=== PATIENT | female | born 1940 | race Caucasian/White ===

== ENCOUNTER 2017-04-25 10:44 | Day surgery (SDC) | payer MEDICARE ==
[2017-04-20 15:24] LABS: CLARITY,URINE Clear (Clear); COLOR,URINE Yellow (Yellow); GLUCOSE, URINE Negative (Neg); KETONES,URINE Negative (Neg); LEUKOCYTE ESTERASE ,URINE Negative (Neg); NITRITES, URINE Negative (Neg); OCCULT BLOOD,URINE Negative (Neg); PROTEIN,URINE Negative (Neg); UROBILINOGEN,URINE 0.2 E.U/dL (0.2-1.0)
[2017-04-20 15:25] LABS: UA COLLECTION TYPE NON-SPECIFIED
[~2017-04-25] VITALS: Ht 165.1 cm; Wt 87.1 kg
[2017-04-25] VITALS (15 sets, daily range): BP systolic 113–144; BP diastolic 64–108
[~2017-04-25 10:44] MED LIST: AMLO5TAB21 PO; ASCO500C15 PO; CHOL10002 PO; FLUT1AER INH; HYDR25TA4 PO; LORA1TAB PO; MAGN250T29 PO; RES15C PO; TRAM50TA2 PO; TURMERIC CURCUMIN PO; famotidine 20mg tablet PO ONE
[2017-04-25] MEDS ORDERED: FEXO180T94 PO (11:58)
[2017-04-25] MEDS ORDERED: BUPIVAcaine/PF 2.5 mg/ml (0.25%) 30ml vial ONE (13:46)
[2017-04-25] MEDS ORDERED: bacitracin 15gm ointment TP ONE (13:46)
[2017-04-25] MEDS ORDERED: ePHEDrine 50MG/ML INJ. ONE (14:00)
[2017-04-25] MEDS ORDERED: sevoflurane 250ml liquid IH ONE (14:00)
[2017-04-25] MEDS ORDERED: midazolam 2 mg/2 ml injection ONE (14:03)
[2017-04-25] MEDS ORDERED: fentaNYL/PF 50MCG/1 ML 2ML syringe ONE ×2 (14:03→14:23)
[2017-04-25] MEDS ORDERED: LIDOcaine 2% (20mg/ml) 5ml vial ONE (14:18)
[2017-04-25] MEDS ORDERED: propofol inj 20 ML IV ONE (14:18)
[2017-04-25] MEDS ORDERED: ondansetron/PF 4mg/2ml inj ONE (14:37)
[2017-04-25] MEDS ORDERED: morphine 2 MG/ML inj. syringe IV STA (14:53)
[2017-04-25] MEDS ORDERED: morphine 5 MG/ML injection ONE (14:55)
[2017-04-25] MEDS ORDERED: HYDROmorphone 1 mg/ml syringe IV ONE (15:15)
[2017-04-25] MEDS ORDERED: HYDROmorphone 1 mg/ml syringe ONE (15:16)
[2017-04-25] MEDS ORDERED: HYDROmorphone 1 mg/ml syringe IV PRN ×2 (15:40)
[2017-04-25] MEDS ORDERED: ondansetron/PF 4mg/2ml inj IV PRN (15:40)
[2017-04-25] MEDS ORDERED: morphine 2 MG/ML inj. syringe IV PRN (15:40)
[2017-04-25] MEDS ORDERED: ringers solution, lacted 1,000 ML IV SCH (15:40)
[2017-04-25] MEDS ORDERED: ketorolac trometh. 30mg/ml inj. IV ONE (15:45)
[2017-04-26] MEDS ORDERED: cefazolin/dext.iso 2gm/50ml 50 ML IV ONE (05:30)
== END 2017-04-25 17:33 | disposition home or self-care (01) ==
LOC: PAS 10:44
PROVIDERS: ATTEND Surgery
DX: K42.9 Umbilical hernia without obstruction or gangrene (principal); F41.9 Anxiety disorder, unspecified; M19.90 Unspecified osteoarthritis, unspecified site; I10 Essential (primary) hypertension; I49.1 Atrial premature depolarization; J44.9 Chronic obstructive pulmonary disease, unspecified; G89.29 Other chronic pain; Z88.6 Allergy status to analgesic agent; Z88.2 Allergy status to sulfonamides; Z88.0 Allergy status to penicillin; Z88.5 Allergy status to narcotic agent; Z87.891 Personal history of nicotine dependence; Z85.3 Personal history of malignant neoplasm of breast; Z90.49 Acquired absence of other specified parts of digestive tract; Z96.643 Presence of artificial hip joint, bilateral; Z98.890 Other specified postprocedural states; Z88.1 Allergy status to other antibiotic agents; Z90.710 Acquired absence of both cervix and uterus
CPT/HCPCS: 49585; 81003; 93005; J1170; J1885; J2001; J2250; J2405; J2704; J3010; J3490; J7120; 88302; A7000; J0690

== ENCOUNTER 2018-11-12 12:10 | Emergency (ER) | payer MEDICARE ==
[~2018-11-12] VITALS: Ht 165.1 cm; Wt 92.7 kg
[~2018-11-12 12:10] MED LIST changes: +FEXO180T94 PO; -famotidine 20mg tablet PO ONE
[2018-11-12 13:07] LABS: BASOPHILS % (AUTO) 0.2 % (0-1); EOSINOPHILS # (AUTO) 0.1 X10'3 (0-0.9); EOSINOPHILS % (AUTO) 0.5 % (0-6); HEMATOCRIT 48.6 % (35.0-45.0); HEMOGLOBIN 16.2 g/dl (12.0-16.0); LYMPHOCYTES # (AUTO) 0.2 X10'3 (1.1-4.8); LYMPHOCYTES % (AUTO) 1.4 % (21-51); MEAN CORPUSCULAR HEMOGLOBIN 28.9 PG (27.0-31.0); MEAN CORPUSCULAR HGB CONC 33.3 g/dL (33.0-36.5); MEAN CORPUSCULAR VOLUME 86.8 FL (78-98); MEAN PLATELET VOLUME 8.5 FL (7.4-10.4); MONOCYTES # (AUTO) 0.4 X10'3 (0-0.9); MONOCYTES % (AUTO) 2.4 % (2-12); NEUTROPHILS # (AUTO) 16.4 X10'3 (1.8-7.7); NEUTROPHILS % (AUTO) 95.5 % (42-75); PLATELET COUNT 399 X10'3 (140-440); RED BLOOD COUNT 5.59 X10'6 (4.20-5.60); WHITE BLOOD COUNT 17.1 X10'3 (4.5-11.0)
[2018-11-12 13:21] LABS: PARTIAL THROMBOPLASTIN TIME 26 SECONDS (22-32)
[2018-11-12 13:33] LABS: ALANINE AMINOTRANSFERASE 24 U/L (12-78); ALBUMIN 3.8 G/DL (3.4-5.0); ALBUMIN/GLOBULIN RATIO 1.1 (1.1-1.5); ALKALINE PHOSPHATASE 60 IU/L (46-116); ANION GAP 6 (8-16); ASPARTATE AMINO TRANSFERASE 18 U/L (10-37); BILIRUBIN,TOTAL 0.6 MG/DL (0.1-1.0); BLOOD UREA NITROGEN 18 MG/DL (7-18); BUN/CREATININE RATIO 19.8 (6.6-38.0); CALCIUM 8.8 MG/DL (8.5-10.1); CHLORIDE 104 MMOL/L (99-107); CREATININE 0.91 MG/DL (0.40-0.90); GLUCOSE 156 MG/DL (70-104); POTASSIUM 3.5 MMOL/L (3.5-5.1); SODIUM 144 MMOL/L (135-145); TOTAL PROTEIN 7.3 G/DL (6.4-8.2); eGFR 60 ML/MIN
[2018-11-12 13:34] LABS: CLARITY,URINE CLOUDY (Clear); COLOR,URINE YELLOW (Yellow); GLUCOSE, URINE NEGATIVE (Neg); KETONES,URINE TRACE mg/dl (Neg); LEUKOCYTE ESTERASE ,URINE SMALL (Neg); NITRITES, URINE NEGATIVE (Neg); OCCULT BLOOD,URINE NEGATIVE (Neg); PH,URINE 5.5 (4.8-8.0); PROTEIN,URINE 30 mg/dl (Neg); UA COLLECTION TYPE CLN CATCH MIDSTREAM; UROBILINOGEN,URINE 0.2 E.U/dL (0.2-1.0)
[2018-11-12] MEDS ORDERED: normal saline 1000ML IV soln IVB ONE (13:50)
[2018-11-12 13:51] LABS: MUCUS STRANDS MANY /LPF (Neg); SQUAMOUS EPITHELIAL CELL,UR MANY /LPF (FEW)
[2018-11-12 13:52] LABS: BACTERIA,URINE 2+ /HPF (Neg); RBC,URINE 0-2 /HPF (0-2)
[2018-11-12] MEDS ORDERED: ONDA4TAB12 PO (14:22)
[2018-11-12 15:00] VITALS: BP 130/70
== END 2018-11-12 15:33 | disposition home or self-care (01) ==
LOC: ER 12:10
DX: R11.2 Nausea with vomiting, unspecified (principal); R19.7 Diarrhea, unspecified; I10 Essential (primary) hypertension; J44.9 Chronic obstructive pulmonary disease, unspecified; F41.9 Anxiety disorder, unspecified; Z98.890 Other specified postprocedural states; Z85.3 Personal history of malignant neoplasm of breast; Z88.1 Allergy status to other antibiotic agents; Z88.2 Allergy status to sulfonamides; Z79.899 Other long term (current) drug therapy
CPT/HCPCS: 36415; 80053; 81001; 83605; 84145; 85025; 85610; 85730; 87040; 99284; J7030

== ENCOUNTER 2019-01-15 10:42 | Inpatient (IN) | payer MEDICARE ==
[2019-01-13 14:44] LABS: BASOPHILS # (AUTO) 0.1 X10'3 (0-0.2); BASOPHILS % (AUTO) 1.1 % (0-1); EOSINOPHILS # (AUTO) 0.3 X10'3 (0-0.9); EOSINOPHILS % (AUTO) 3.6 % (0-6); LYMPHOCYTES # (AUTO) 2.1 X10'3 (1.1-4.8); MEAN CORPUSCULAR HEMOGLOBIN 29.4 PG (27.0-31.0); MEAN CORPUSCULAR VOLUME 86.6 FL (78-98); MEAN PLATELET VOLUME 8.1 FL (7.4-10.4); MONOCYTES # (AUTO) 0.7 X10'3 (0-0.9); MONOCYTES % (AUTO) 7.9 % (2-12); NEUTROPHILS # (AUTO) 5.3 X10'3 (1.8-7.7); NEUTROPHILS % (AUTO) 62.4 % (42-75); PRE OP HEMOGLOBIN 14.9 g/dL (12.0-16.0); PRE OP PLATELET COUNT 413 X10'3 (140-440); RED BLOOD COUNT 5.08 X10'6 (4.20-5.60); RED CELL DISTRIBUTION WIDTH 15.3 % (11.5-14.5)
[2019-01-13 14:52] LABS: ALBUMIN/GLOBULIN RATIO 1.1 (1.1-1.5); ALKALINE PHOSPHATASE 51 IU/L (46-116); BLOOD UREA NITROGEN 10 MG/DL (7-18); BUN/CREATININE RATIO 12.2 (6.6-38.0); CALCIUM 9.2 MG/DL (8.5-10.1); CHLORIDE 102 MMOL/L (99-107); CREATININE 0.82 MG/DL (0.40-0.90); PRE OP ALT 21 U/L (30-65); PRE OP ANION GAP 2 (8-16); PRE OP AST 16 U/L (10-37); PRE OP BILIRUB, TOTAL 0.5 MG/DL (0.0-1.0); PRE OP GLUCOSE 100 MG/DL (70-104); PRE OP POTASSIUM 3.6 MMOL/L (3.4-5.1); PRE OP SODIUM 140 MMOL/L (135-145); TOTAL CARBON DIOXIDE 35.9 MMOL/L (24-32); TOTAL PROTEIN 7.5 G/DL (6.4-8.2); eGFR 67 ML/MIN
[2019-01-13 15:46] LABS: CLARITY,URINE SLIGHTLY CLOUDY (Clear); COLOR,URINE YELLOW (Yellow); GLUCOSE, URINE NEGATIVE (Neg); KETONES,URINE NEGATIVE (Neg); LEUKOCYTE ESTERASE ,URINE NEGATIVE (Neg); NITRITES, URINE NEGATIVE (Neg); OCCULT BLOOD,URINE NEGATIVE (Neg); PROTEIN,URINE NEGATIVE (Neg); UROBILINOGEN,URINE 0.2 E.U/dL (0.2-1.0)
[2019-01-13 15:50] LABS: UA COLLECTION TYPE CLN CATCH MIDSTREAM
[2019-01-13 16:10] LABS: HYALINE CASTS 0-3 /LPF (NEGATIVE); MUCUS STRANDS MODERATE /LPF (Neg); SQUAMOUS EPITHELIAL CELL,UR MANY /LPF (FEW)
[2019-01-13 16:11] LABS: TRANSITIONAL EPI CELLS,URINE FEW /HPF
[2019-01-13 16:12] LABS: BACTERIA,URINE FEW /HPF (Neg); RBC,URINE 0-2 /HPF (0-2); WBC,URINE 0-4 /HPF (0-4)
[~2019-01-15] VITALS: Ht 165.1 cm; Wt 94.1 kg
[2019-01-15] VITALS (26 sets, daily range): BP systolic 103–152; BP diastolic 62–87
[~2019-01-15 10:42] MED LIST changes: -FEXO180T94 PO; -TRAM50TA2 PO; +VITA0.4T7 PO; +albuterol 2.5 MG/3 ML nebule NEB ONE; +clindamycin-Cleocin 900mg/D5W 50 ML IV ONE; +famotidine 20mg tablet PO ONE
--- NOTE | 2019-01-15 11:02 | NUR ---
PT HAS 11/-2' SOFT LUMP L ANTERIOR SHOULDER, STATES HES HAD FOR A LONG TIME. DR DUDLEY IN TO EXAM PT
[2019-01-15] MEDS: ringers solution, lacted 1,000 ML IV SCH ×2 (11:16→17:30)
[2019-01-15] MEDS ORDERED: LORA10TA7 PO (11:30)
[2019-01-15] MEDS ORDERED: BUPIVAcaine/PF 2.5mg/ml (0.25%) 10ml vial ONE ×2 (11:43→13:35)
--- NOTE | 2019-01-15 11:48 | NUR ---
patient refused svn tx due tosaya it causes diahrea Addendum: 01/15/19 at 1150 by Mary Jo Cornell RT Amended: Links added.
[2019-01-15] MEDS ORDERED: dexamethasone sod phosphate 10mg/ml inj ONE (12:22)
[2019-01-15] MEDS ORDERED: glycopyrrolate 0.2mg/ml inj ONE (12:22)
[2019-01-15] MEDS ORDERED: sevoflurane 250ml liquid IH ONE (12:22)
[2019-01-15] MEDS ORDERED: neostigmine methylsulfate 1 MG/ML 10ml vial ONE (12:22)
[2019-01-15] MEDS ORDERED: MIDAZolam 5mg/5ml vial ONE (12:29)
[2019-01-15] MEDS ORDERED: fentaNYL/PF 50MCG/1 ML 2ML syringe ONE (12:29)
[2019-01-15] MEDS ORDERED: rocuronium 10mg/ml inj IV ONE (12:37)
[2019-01-15] MEDS ORDERED: etomidate 2mg/ml inj. ONE (12:37)
[2019-01-15] MEDS ORDERED: ondansetron/PF 4mg/2ml inj ONE (12:37)
[2019-01-15] MEDS ORDERED: ringers solution, lacted 1,000 ML IV SCH (12:57)
[2019-01-15] MEDS: ceFAZolin 1000mg inj ONE ×2 (12:58→12:59)
[2019-01-15] MEDS ORDERED: morphine 4 MG/ML inj SYRINge IV PRN ×2 (13:00)
[2019-01-15] MEDS ORDERED: hydrALAZINE 20mg/ml inj. IV PRN (13:00)
[2019-01-15] MEDS ORDERED: fentaNYL/PF 50MCG/1 ML 2ML syringe IV PRN ×2 (13:00)
[2019-01-15] MEDS ORDERED: labetalol 20mg/4ml (5mg/ml) syringe IV PRN (13:00)
[2019-01-15] MEDS ORDERED: ondansetron/PF 4mg/2ml inj IV PRN (13:00)
[2019-01-15] MEDS ORDERED: ePHEDrine 50MG/ML INJ. ONE (13:06)
[2019-01-15] MEDS ORDERED: bacitracin 15gm ointment TP ONE (13:33)
[2019-01-15] MEDS ORDERED: BUPIVACAINE liposomal/PF 13.3 MG/ML vial IM ONE (13:35)
[2019-01-15] MEDS ORDERED: acetaminophen 325mg tablet PO PRN (13:55)
[2019-01-15] MEDS ORDERED: ketorolac tromethamine 15mg/ml inj. IV ONE (14:50)
[2019-01-15] MEDS ORDERED: acetaminophen 1,000mg/100ml IV 100 ML IV ONE (14:50)
[2019-01-15] MEDS ORDERED: VITA1CAP PO (15:05)
--- NOTE | 2019-01-15 15:20 | NUR ---
Received from OR via TRINY, accompanied by Anesthesiologist DR FREDERICK and report given by Anesthesiologist. PT AGITATED, PAINFUL, VERSED AND FENTANYL GIVEN BY DR FREDERICK, ABDOMEN W/DRSG CDI, DE JESUS TO GRAVITY DRAINAGE W/DARK YELLOW URINE IN DRAINAGE BAG. Addendum: 01/15/19 at 1730 by Marla Kerns RN Amended: Links added.
[2019-01-15] MEDS: morphine/NS 5 mg/ml CADD 50 ML IV SCH ×5 (16:40→23:00)
--- NOTE | 2019-01-15 16:40 | NUR ---
Report called to receiving nurse. Transferred via GURNEY, 1 BAG OF Belongings SENT W/PT ROOM 345, RECEIVING RN AT BEDSIDE TO RECIEVE PT, PT TRANSFERRED OVER ONTO BED, BLL, CALL LIGHT GIVEN, SIDE RAILS UP X 2. Special Issues communicated to receiving nurse. YES. Addendum: 01/15/19 at 1732 by Marla Kerns RN Amended: Links added.
--- NOTE | 2019-01-15 17:00 | NUR ---
patient appears stable on admit to unit. patient is on continuous pulse ox o2 sats 90%/5L MD aware. Surgical wound to abdomen CDI. patient orientated to unit. Report given to Nicky PAULSON
--- NOTE | 2019-01-15 17:21 | NUR ---
Patient in room . I have received report from milla PAULSON and had the opportunity to ask questions and assume patient care.
[2019-01-15] MEDS: temazepam 15mg capsule PO SCH (21:00)
[2019-01-15] MEDS: albuterol 2.5 MG/3 ML nebule NEB SCH (21:31)
[2019-01-16] MEDS: morphine/NS 5 mg/ml CADD 50 ML IV SCH ×6 (01:00→11:00)
[2019-01-16] MEDS: albuterol 2.5 MG/3 ML nebule NEB SCH ×4 (03:00→20:16)
[2019-01-16 04:00] VITALS: BP 114/69
--- NOTE | 2019-01-16 06:57 | NUR ---
Patient in room [facility]. I have received report from PAT RN and had the opportunity to ask questions and assume patient care.
[2019-01-16 07:00] VITALS: BP 111/55
[2019-01-16] MEDS: ascorbic acid 500mg tablet PO SCH (08:04)
[2019-01-16] MEDS: vitamin D (cholecalciferol) 1,000 unit tablet PO SCH (08:04)
[2019-01-16] MEDS: magnesium oxide 400mg tablet PO SCH (08:04)
[2019-01-16] MEDS: amLODIPine 5mg tablet PO SCH (08:05)
[2019-01-16] MEDS: HYDROchlorothiazide 25mg tablet PO SCH (08:05)
[2019-01-16] MEDS: vitamin B comp w/Vit. C tab 1 TAB TABLET PO SCH (08:28)
[2019-01-16] MEDS: budesonide 0.5mg/2ml UD nebule IH SCH ×2 (09:37→20:16)
[2019-01-16 12:00] VITALS: BP 115/55
[2019-01-16] MEDS ORDERED: CADD PCA waste documentation MC SCH (15:00)
[2019-01-16] MEDS: traMADol 50MG tablet PO PRN (15:09)
--- NOTE | 2019-01-16 17:41 | NUR ---
Student documentation: I have reviewed all interventions, assessments performed and documented by Farzad EASLEY
--- NOTE | 2019-01-16 17:42 | NUR ---
Student Medication Administration: , all medication were reviewed, dispensed, administered and documented per hospital policy by Farzad HOUSTON
[2019-01-16 18:00] VITALS: BP 124/64
--- NOTE | 2019-01-16 18:40 | NUR ---
received report from LORENE Natarajan
--- NOTE | 2019-01-16 18:45 | NUR ---
Problems reprioritized. Patient report given, questions answered & plan of care reviewed with Papito PAULSON .
[2019-01-16] MEDS: LORazepam 0.5 MG tablet PO PRN (20:13)
[2019-01-16] MEDS: temazepam 15mg capsule PO SCH (20:14)
[2019-01-17] VITALS: BP 133/70
[2019-01-17] MEDS: traMADol 50MG tablet PO PRN ×3 (01:58→16:46)
[2019-01-17] MEDS: albuterol 2.5 MG/3 ML nebule NEB SCH ×4 (02:00→20:15)
--- NOTE | 2019-01-17 06:50 | NUR ---
Problems reprioritized. Patient report given, questions answered & plan of care reviewed with LORENE Pompa.
[2019-01-17] MEDS: budesonide 0.5mg/2ml UD nebule IH SCH ×2 (06:58→20:15)
[2019-01-17 08:02] VITALS: BP 141/72
[2019-01-17] MEDS: ascorbic acid 500mg tablet PO SCH (08:49)
[2019-01-17] MEDS: amLODIPine 5mg tablet PO SCH (08:51)
[2019-01-17] MEDS: magnesium oxide 400mg tablet PO SCH (08:51)
[2019-01-17] MEDS: vitamin B comp w/Vit. C tab 1 TAB TABLET PO SCH (08:51)
[2019-01-17] MEDS: HYDROchlorothiazide 25mg tablet PO SCH (08:51)
[2019-01-17] MEDS: famotidine 20mg tablet PO SCH (08:51)
[2019-01-17] MEDS: vitamin D (cholecalciferol) 1,000 unit tablet PO SCH (08:52)
--- NOTE | 2019-01-17 10:00 | NUR ---
Dr. Zambrano in to see patient. Informed MD that abdomen is distended, pt not passing gas, pt on 4L NC at 90% and desats to 86-88% with walking. MD ordered IS, for pt to walk, full liquid diet, and RT treatments. Will continue to monitor.
[2019-01-17] MEDS ORDERED: albuterol 2.5 MG/3 ML nebule NEB PRN (10:45)
[2019-01-17 11:00] VITALS: BP 133/76
[2019-01-17] MEDS ORDERED: nitrofurantoin macrocrystal 100mg capsule PO ONE (12:30)
[2019-01-17] MEDS: magnesium hydroxide 30ml (MOM) UD suspension PO PRN (13:36)
[2019-01-17] MEDS: LORazepam 0.5 MG tablet PO PRN (13:36)
[2019-01-17 18:00] VITALS: BP_SYST 131; BP_SYST 181; BP_DIAS 70
--- NOTE | 2019-01-17 18:22 | NUR ---
Problems reprioritized. Patient report given, questions answered & plan of care reviewed with Papito PAULSON.
[2019-01-17] MEDS: temazepam 15mg capsule PO SCH (21:06)
[2019-01-18] VITALS: BP 126/69
[2019-01-18] MEDS: albuterol 2.5 MG/3 ML nebule NEB SCH ×4 (02:45→20:55)
--- NOTE | 2019-01-18 06:14 | NUR ---
Patient in room [facility]. I have received report from LORENE Cobos and had the opportunity to ask questions and assume patient care. Patient currently sleeping in bed, bed locked and low, call light in reach, no acute distress, will continue to monitor.
--- NOTE | 2019-01-18 06:43 | NUR ---
report given to LORENE Crawford
[2019-01-18 07:04] VITALS: BP 121/70
[2019-01-18] MEDS: magnesium oxide 400mg tablet PO SCH (07:22)
[2019-01-18] MEDS: vitamin B comp w/Vit. C tab 1 TAB TABLET PO SCH (07:22)
[2019-01-18] MEDS: ascorbic acid 500mg tablet PO SCH (07:22)
[2019-01-18] MEDS: HYDROchlorothiazide 25mg tablet PO SCH (07:22)
[2019-01-18] MEDS: magnesium hydroxide 30ml (MOM) UD suspension PO PRN (07:22)
[2019-01-18] MEDS: famotidine 20mg tablet PO SCH (07:22)
[2019-01-18] MEDS: vitamin D (cholecalciferol) 1,000 unit tablet PO SCH (07:22)
[2019-01-18] MEDS: amLODIPine 5mg tablet PO SCH (07:22)
[2019-01-18] MEDS: traMADol 50MG tablet PO PRN ×3 (07:23→21:15)
[2019-01-18] MEDS: budesonide 0.5mg/2ml UD nebule IH SCH ×2 (07:25→20:55)
--- NOTE | 2019-01-18 09:33 | NUR ---
spoke with Dr. Zambrano on the phone regarding patient's rash/blisters on abd. benadryl 25mg PO ordered PRN, also discussed that pt's power is out at home due to PGE shut off so he stated she does not need to be discharged today as she has an oxygen concentrator at home that she needs and cannot use without power.
[2019-01-18] MEDS: diphenhydrAMINE 25mg capsule PO PRN ×2 (09:37→21:16)
[2019-01-18 11:37] VITALS: BP 120/65
[2019-01-18 18:00] VITALS: BP 120/59
--- NOTE | 2019-01-18 18:19 | NUR ---
Patient in room [facility]. I have received report from LORENE Crawford and had the opportunity to ask questions and assume patient care.
--- NOTE | 2019-01-18 18:30 | NUR ---
Problems reprioritized. Patient report given, questions answered & plan of care reviewed with LORENE Daniel.
[2019-01-18 19:00] VITALS: BP 120/59
[2019-01-18] MEDS: temazepam 15mg capsule PO SCH (21:14)
[2019-01-19 00:08] VITALS: BP 119/67
[2019-01-19] MEDS: albuterol 2.5 MG/3 ML nebule NEB SCH ×4 (03:51→20:12)
--- NOTE | 2019-01-19 05:46 | NUR ---
Patient has had a BM for my shift. Diet advanced as ordered.
--- NOTE | 2019-01-19 06:24 | NUR ---
Problems reprioritized. Patient report given, questions answered & plan of care reviewed with LORENE Evangelista.
--- NOTE | 2019-01-19 06:41 | NUR ---
Patient in room [facility]. I have received report from Elida PAULSON and María RN and had the opportunity to ask questions and assume patient care.
[2019-01-19 07:00] VITALS: BP 123/74
[2019-01-19] MEDS: vitamin B comp w/Vit. C tab 1 TAB TABLET PO SCH (07:41)
[2019-01-19] MEDS: vitamin D (cholecalciferol) 1,000 unit tablet PO SCH (07:41)
[2019-01-19] MEDS: HYDROchlorothiazide 25mg tablet PO SCH (07:41)
[2019-01-19] MEDS: magnesium oxide 400mg tablet PO SCH (07:41)
[2019-01-19] MEDS: famotidine 20mg tablet PO SCH (07:41)
[2019-01-19] MEDS: amLODIPine 5mg tablet PO SCH (07:41)
[2019-01-19] MEDS: ascorbic acid 500mg tablet PO SCH (07:41)
[2019-01-19] MEDS: traMADol 50MG tablet PO PRN (07:47)
[2019-01-19] MEDS: budesonide 0.5mg/2ml UD nebule IH SCH ×2 (08:00→20:12)
[2019-01-19 12:00] VITALS: BP 128/68
[2019-01-19] MEDS: LORazepam 0.5 MG tablet PO PRN ×2 (13:42→19:26)
--- NOTE | 2019-01-19 13:55 | NUR ---
Patient became anxious suddenly. When I asked what's bothering her, patient states "My niece kept on telling me that I might have a MRSA on my belly." I asked her if she wants us to not allow her niece to talk to her on the hospital phone, she says "she always think she knows everything and she scares me! Patient verified to me that she is not refusing communication with her niece. Ativan PO given as indicated for anxiety. Charge nurse Alison notified about this. Patient's abdomen has blisters that are intact and some redness which patient stated that Dr. Zambrano saw it and thought that it could be from a tape.
[2019-01-19] MEDS: mag hydrox/Alum hydrox/simeth 30ml oral suspension PO PRN (17:15)
[2019-01-19 18:00] VITALS: BP 135/68
--- NOTE | 2019-01-19 18:02 | NUR ---
Patient in room [facility]. I have received report from LORENE Evangelista and had the opportunity to ask questions and assume patient care.
--- NOTE | 2019-01-19 18:34 | NUR ---
Problems reprioritized. Patient report given, questions answered & plan of care reviewed with Elida RN and Allison RN.
[2019-01-19] MEDS: ondansetron/PF 4mg/2ml inj IV PRN (19:15)
[2019-01-19] MEDS: temazepam 15mg capsule PO SCH (21:06)
[2019-01-20] VITALS: BP 118/54
[2019-01-20] MEDS: albuterol 2.5 MG/3 ML nebule NEB SCH ×4 (02:58→20:01)
--- NOTE | 2019-01-20 06:31 | NUR ---
Problems reprioritized. Patient report given, questions answered & plan of care reviewed with LORENE Harvey.
--- NOTE | 2019-01-20 06:39 | NUR ---
Patient in room [facility]. I have received report from Candice and had the opportunity to ask questions and assume patient care.
[2019-01-20] MEDS: famotidine 20mg tablet PO SCH (07:25)
[2019-01-20] MEDS: HYDROchlorothiazide 25mg tablet PO SCH (07:26)
[2019-01-20] MEDS: amLODIPine 5mg tablet PO SCH (07:26)
[2019-01-20] MEDS: vitamin B comp w/Vit. C tab 1 TAB TABLET PO SCH (07:26)
[2019-01-20] MEDS: magnesium oxide 400mg tablet PO SCH (07:26)
[2019-01-20] MEDS: vitamin D (cholecalciferol) 1,000 unit tablet PO SCH (07:26)
[2019-01-20] MEDS: ascorbic acid 500mg tablet PO SCH (07:26)
[2019-01-20 07:41] VITALS: BP 123/78
[2019-01-20 07:45] VITALS: BP 116/57
[2019-01-20] MEDS: budesonide 0.5mg/2ml UD nebule IH SCH ×2 (08:00→20:01)
[2019-01-20] MEDS: ondansetron/PF 4mg/2ml inj IV PRN ×2 (08:58→23:21)
[2019-01-20] MEDS: LORazepam 0.5 MG tablet PO PRN (08:58)
--- NOTE | 2019-01-20 10:18 | NUR ---
PT REFUSING NEW IV, CURRENT IV OUTDATED 01/15. EDUCATED PT ON RISKS OF INFECTION.
--- NOTE | 2019-01-20 10:32 | NUR ---
Student Medication Administration: For this medication-pass time frame, all medication were reviewed, dispensed, administered and documented per hospital policy by Devon nursing staffing coordinator.
[2019-01-20 11:11] VITALS: BP 114/51
--- NOTE | 2019-01-20 11:37 | NUR ---
Student documentation: I have reviewed and agree with all interventions, assessments performed and documented by Devon, nursing informatics clinical analyst.
--- NOTE | 2019-01-20 11:58 | NUR ---
Problems reprioritized. Patient report given, questions answered & plan of care reviewed with Candice.
--- NOTE | 2019-01-20 16:35 | NUR ---
Initial: Pt admit w/ recurrent abdominal wall hernias s/p repair. Advanced to regular diet PO 100% lunch today w/ 50% avg previous meals though PO has fluctuated some post-op. LBM 01/19 w/ abdominal pain and nausea noted per EMR today. Receiving vitamins for wound healing needs. Will continue to monitor for additional protein needs pending regular diet PO post-op. Rec: 1. continue regular diet 2. monitor for ONS needs post-op 3. MVI for wound healing 4. bowel care as needed 5. wt per rx Addendum: 01/20/19 at [address] Amended: Links added.
--- NOTE | 2019-01-20 18:27 | NUR ---
Problems reprioritized. Patient report given, questions answered & plan of care reviewed with KELSEA PAULSON.
--- NOTE | 2019-01-20 18:30 | NUR ---
Patient in room [facility]. I have received report from Candice PAULSON and had the opportunity to ask questions and assume patient care.
[2019-01-20] MEDS: traMADol 50MG tablet PO PRN (18:42)
[2019-01-20 19:00] VITALS: BP 113/64
[2019-01-20] MEDS: mag hydrox/Alum hydrox/simeth 30ml oral suspension PO PRN (20:43)
[2019-01-20] MEDS: temazepam 15mg capsule PO SCH (20:44)
[2019-01-21] VITALS: BP 108/60
[2019-01-21] MEDS: albuterol 2.5 MG/3 ML nebule NEB SCH ×4 (03:00→19:52)
--- NOTE | 2019-01-21 03:00 | NUR ---
Patient awoke and took herself to the bathroom. On return she mentioned that her R arm was hurting and that she thought it had started yesterday. Assessed her RuE and it looks like patient has a DVT. Called Dr Hernandez and received orders for vascular ultrasound to RUE and labs to be drawn. Patient's arm elevated for comfort. Patient given ativan for anxiety.
[2019-01-21] MEDS: LORazepam 0.5 MG tablet PO PRN (03:27)
[2019-01-21 04:57] LABS: BASOPHILS # (AUTO) 0.1 X10'3 (0-0.2); BASOPHILS % (AUTO) 0.5 % (0-1); EOSINOPHILS # (AUTO) 0.4 X10'3 (0-0.9); EOSINOPHILS % (AUTO) 3.8 % (0-6); HEMATOCRIT 42.4 % (35.0-45.0); HEMOGLOBIN 14.2 g/dl (12.0-16.0); LYMPHOCYTES # (AUTO) 1.8 X10'3 (1.1-4.8); LYMPHOCYTES % (AUTO) 16.3 % (21-51); MEAN CORPUSCULAR HEMOGLOBIN 29.3 PG (27.0-31.0); MEAN CORPUSCULAR HGB CONC 33.5 g/dL (33.0-36.5); MEAN CORPUSCULAR VOLUME 87.6 FL (78-98); MEAN PLATELET VOLUME 8.3 FL (7.4-10.4); MONOCYTES # (AUTO) 1.2 X10'3 (0-0.9); NEUTROPHILS # (AUTO) 7.5 X10'3 (1.8-7.7); NEUTROPHILS % (AUTO) 68.4 % (42-75); PLATELET COUNT 416 X10'3 (140-440); RED BLOOD COUNT 4.84 X10'6 (4.20-5.60)
[2019-01-21 05:04] LABS: PARTIAL THROMBOPLASTIN TIME 25 SECONDS (22-32)
[2019-01-21 05:23] LABS: ALANINE AMINOTRANSFERASE 27 U/L (12-78); ALBUMIN 3.3 G/DL (3.4-5.0); ALBUMIN/GLOBULIN RATIO 0.9 (1.1-1.5); ALKALINE PHOSPHATASE 56 IU/L (46-116); ANION GAP 5 (8-16); ASPARTATE AMINO TRANSFERASE 24 U/L (10-37); BILIRUBIN,TOTAL 0.6 MG/DL (0.1-1.0); BLOOD UREA NITROGEN 10 MG/DL (7-18); BUN/CREATININE RATIO 10.8 (6.6-38.0); CALCIUM 9.2 MG/DL (8.5-10.1); CHLORIDE 98 MMOL/L (99-107); CREATININE 0.93 MG/DL (0.40-0.90); GLUCOSE 125 MG/DL (70-104); POTASSIUM 3.5 MMOL/L (3.5-5.1); SODIUM 141 MMOL/L (135-145); TOTAL CARBON DIOXIDE 37.6 MMOL/L (24-32); TOTAL PROTEIN 7.1 G/DL (6.4-8.2); eGFR 58 ML/MIN
--- NOTE | 2019-01-21 06:29 | NUR ---
Report given to Cyndi
[2019-01-21] MEDS: budesonide 0.5mg/2ml UD nebule IH SCH ×2 (07:19→19:52)
[2019-01-21 08:00] VITALS: BP 111/51
[2019-01-21] MEDS: amLODIPine 5mg tablet PO SCH (09:40)
[2019-01-21] MEDS: vitamin B comp w/Vit. C tab 1 TAB TABLET PO SCH (09:40)
[2019-01-21] MEDS: ascorbic acid 500mg tablet PO SCH (09:40)
[2019-01-21] MEDS: vitamin D (cholecalciferol) 1,000 unit tablet PO SCH (09:41)
[2019-01-21] MEDS: HYDROchlorothiazide 25mg tablet PO SCH (09:41)
[2019-01-21] MEDS: magnesium oxide 400mg tablet PO SCH (09:41)
[2019-01-21] MEDS: famotidine 20mg tablet PO SCH (09:42)
[2019-01-21] MEDS: diphenhydrAMINE 25mg capsule PO PRN ×2 (09:47→21:24)
--- NOTE | 2019-01-21 09:57 | NUR ---
Some swelling/ redness to medial R elbow. Addendum: 01/21/19 at 1003 by Cyndi Saxena RN Amended: Links added.
[2019-01-21 12:14] VITALS: BP 102/52
[2019-01-21] MEDS: traMADol 50MG tablet PO PRN (14:26)
[2019-01-21] MEDS: rivaroxaban 20mg tablet PO SCH (14:26)
--- NOTE | 2019-01-21 18:26 | NUR ---
Gave report to Adriana PAULSON.
--- NOTE | 2019-01-21 18:30 | NUR ---
Patient in room [facility]. I have received report from Cyndi PAULSON and had the opportunity to ask questions and assume patient care.
[2019-01-21 19:00] VITALS: BP 123/60
[2019-01-21] MEDS: temazepam 15mg capsule PO SCH (21:20)
[2019-01-22] VITALS: BP 131/67
[2019-01-22] MEDS: albuterol 2.5 MG/3 ML nebule NEB SCH (02:00)
[2019-01-22] MEDS: LORazepam 0.5 MG tablet PO PRN (03:26)
--- NOTE | 2019-01-22 04:16 | NUR ---
Patient does have a thrombus that developed in her RUE. RUE is still pink and swollen but is not so hot to the touch. Patient has been started on xarelto and received first dose yesterday. Addendum: 01/22/19 at 0422 by Adriana Allen RN Amended: Links added.
--- NOTE | 2019-01-22 04:18 | NUR ---
Pillows are being used for comfort and also elevation of RUE. Addendum: 01/22/19 at 0422 by Adriana Allen RN Amended: Links added.
[2019-01-22 07:00] VITALS: BP 123/65
[2019-01-22] MEDS: vitamin B comp w/Vit. C tab 1 TAB TABLET PO SCH (08:00)
[2019-01-22] MEDS: vitamin D (cholecalciferol) 1,000 unit tablet PO SCH (08:00)
[2019-01-22] MEDS: magnesium oxide 400mg tablet PO SCH (08:00)
[2019-01-22] MEDS: ascorbic acid 500mg tablet PO SCH (08:00)
[2019-01-22] MEDS: rivaroxaban 20mg tablet PO SCH (09:09)
[2019-01-22] MEDS: amLODIPine 5mg tablet PO SCH (09:10)
[2019-01-22] MEDS: HYDROchlorothiazide 25mg tablet PO SCH (09:10)
[2019-01-22] MEDS: famotidine 20mg tablet PO SCH (09:10)
[2019-01-22] MEDS: traMADol 50MG tablet PO PRN (09:12)
[2019-01-22] MEDS: diphenhydrAMINE 25mg capsule PO PRN (09:16)
[2019-01-22] MEDS ORDERED: RIVA20TA PO (12:30)
--- NOTE | 2019-01-22 15:50 | NUR ---
Pt discharged to home at 1550, with all belongings, in private vehicle. Discharge instructions and medications reviewed. New prescription e-scripted to [facility] in [place]. Pt provided with Dr Hernandez office number and instructed to follow up within the next week. IV DC'd, cannula intact. Pt escorted to front lobby via wheelchair by student RN.
== END 2019-01-22 16:00 | disposition home or self-care (01) | DRG 354 ==
LOC: PAS 10:42 → SUR 3N 17:26 → PAS 01-16 13:46 → SUR 3N 01-20 19:42
PROVIDERS: ADMIT Surgery; ATTEND Surgery
PROC: 3E0T3BZ Introduction of Anesthetic Agent into Peripheral Nerves and Plexi, Percutaneous Approach (ICD-10-PCS; 2019-01-15)
PROC: 0WUF4JZ Supplement Abdominal Wall with Synthetic Substitute, Percutaneous Endoscopic Approach (ICD-10-PCS; principal; 2019-01-15 12:22)
DX: K42.0 Umbilical hernia with obstruction, without gangrene (principal); J96.11 Chronic respiratory failure with hypoxia; I82.611 Acute embolism and thrombosis of superficial veins of right upper extremity; I10 Essential (primary) hypertension; K43.0 Incisional hernia with obstruction, without gangrene; J43.9 Emphysema, unspecified; E66.9 Obesity, unspecified; F41.9 Anxiety disorder, unspecified; M54.9 Dorsalgia, unspecified; Z87.891 Personal history of nicotine dependence; Z90.49 Acquired absence of other specified parts of digestive tract; Z99.81 Dependence on supplemental oxygen; Z87.01 Personal history of pneumonia (recurrent); Z88.1 Allergy status to other antibiotic agents; Z88.5 Allergy status to narcotic agent; Z88.2 Allergy status to sulfonamides; Z68.34 Body mass index [BMI] 34.0-34.9, adult
CPT/HCPCS: 36415; 71046; 80053; 81001; 82948; 85025; 85610; 85730; 93005; 93971; 94640; 94760; 97112; 97116; 97530; A4215; A4618; A6449; A7000; C1758; C1781; C9290; G0378; J0131; J0690; J1100; J1885; J2250; J2270; J2405; J2710; J3010; J3490; J7120; J7626; Q0163

== ENCOUNTER 2023-07-11 23:47 | Emergency (ER) | payer MEDICARE ==
[~2023-07-11] VITALS: Ht 165.1 cm; Wt 80.5 kg
[~2023-07-11 23:47] MED LIST changes: -ASCO500C15 PO; +ASCO500C18 PO; +LORA10TA7 PO; +RIVA20TA PO; -TURMERIC CURCUMIN PO; -VITA0.4T7 PO; +VITA1CAP PO; -albuterol 2.5 MG/3 ML nebule NEB ONE; -clindamycin-Cleocin 900mg/D5W 50 ML IV ONE; -famotidine 20mg tablet PO ONE
[2023-07-12] MEDS: LIDOcaine 5% patch TP ONE (02:40)
[2023-07-12] MEDS: acetaminophen 1,000mg/100ml IV 100 ML IV ONE (03:14)
[2023-07-12] MEDS ORDERED: LIDO700A32 TOP (05:03)
[2023-07-12 06:33] VITALS: BP 152/84; PULSE 69; RESP 16; TEMP 98.2; O2SAT 90
== END 2023-07-12 06:34 | disposition home or self-care (01) ==
LOC: ER 23:48
DX: R07.81 Pleurodynia (principal); Z88.1 Allergy status to other antibiotic agents; Z88.2 Allergy status to sulfonamides; Z88.8 Allergy status to other drugs, medicaments and biological substances; I10 Essential (primary) hypertension; J44.9 Chronic obstructive pulmonary disease, unspecified; F41.9 Anxiety disorder, unspecified; Z85.3 Personal history of malignant neoplasm of breast
CPT/HCPCS: 71250; 99284